=== PATIENT | female | born 1955 | race African-American/Black ===

== ENCOUNTER 2024-01-06 22:10 | Inpatient (IN) | payer MEDICARE, OTHER ==
[~2024-01-06] VITALS: Ht 160 cm; Wt 30.9 kg
[2024-01-06 22:10] VITALS: BP 146/53; PULSE 77; RESP 18; TEMP 37.00296; O2SAT 97
[~2024-01-06 22:10] MED LIST: ASPI-1497 PO; ATOR-2 PO; CLOP-31 PO; EZET10TA81 MT; ISOS60TA76 PO; LISI40TA13 MT; METF-414 PO; METF-416 PO; METO25TA6 PO; NITR0.4T49 SL
[2024-01-06 22:20] VITALS: BP 146/53; PULSE 77; RESP 20; TEMP 36.1956
[2024-01-07] MEDS ORDERED: ONDANSETRON HCL 4MG/2ML INJ IV PRN
[2024-01-07] MEDS ORDERED: GUAIFENESIN 200MG/10ML SUGAR FREE UDC PO PRN
[2024-01-07] MEDS ORDERED: MAGNESIUM HYDROXIDE 400MG/5ML 30ML UDC PO PRN
[2024-01-07] MEDS ORDERED: BISACODYL 5MG TABLET PO PRN
[2024-01-07] MEDS ORDERED: DOCUSATE SODIUM 250MG CAPSULE PO PRN
[2024-01-07] MEDS ORDERED: DEXTROSE 50% WATER 50ML SYRINGE IV PRN
[2024-01-07] MEDS ORDERED: HYDRALAZINE 20MG/ML VIAL IV PRN
[2024-01-07] MEDS ORDERED: HYDRALAZINE 10 MG in SODIUM CHLORIDE 0.9% 49.5 ML IV PRN (00:45)
[2024-01-07] MEDS: BLOOD SUGAR DIAGNOSTIC STRIP TEST SCH (06:50)
[2024-01-07] MEDS: HYDRALAZINE HCL 100MG TABLET PO SCH (06:50)
[2024-01-07 08:00] VITALS: BP 132/60; PULSE 83; RESP 18; TEMP 36.3918; O2SAT 100
[2024-01-07 08:33] LABS: CHLORIDE 108 mEq/L (98-107); POTASSIUM 3.1 mEq/L (3.5-5.1); SODIUM 141 mEq/L (136-145)
[2024-01-07 08:34] LABS: CALCIUM 8.2 mg/dL (8.7-10.4); CARBON DIOXIDE 28 mEq/L (21-32)
[2024-01-07 08:39] LABS: CREATININE 0.7 mg/dL (0.6-1.0); GLUCOSE 151 mg/dL (70-105); UREA NITROGEN BLOOD 15 mg/dL (9-23)
[2024-01-07 08:41] LABS: ALANINE AMINOTRANSFERASE 13 IU/L (10-49); ALBUMIN 3.1 g/dL (3.2-4.8); ASPARTATE AMINOTRANSFERASE 13 IU/L (<34); PREALBUMIN 22.6 mg/dl (10.0-40.0)
[2024-01-07 08:42] LABS: BILIRUBIN TOTAL 0.6 mg/dL (0.1-1.0); PROTEIN TOTAL 4.5 g/dL (6.0-8.3)
[2024-01-07] MEDS: LISINOPRIL 20MG TABLET PO SCH (08:54)
[2024-01-07] MEDS: SPIRONOLACTONE 25MG TABLET PO SCH (08:54)
[2024-01-07] MEDS: FUROSEMIDE 40MG TABLET PO SCH (08:54)
[2024-01-07] MEDS: AMLODIPINE 10MG TABLET PO SCH (08:54)
[2024-01-07] MEDS: LACTOBACILLUS GG CAPSULE PO SCH (08:54)
[2024-01-07] MEDS: METFORMIN HCL 500MG TABLET PO SCH (08:55)
[2024-01-07] MEDS: PANTOPRAZOLE 40MG DR TABLET PO SCH (08:55)
[2024-01-07] MEDS: BACITRACIN 14GM TUBE TOP SCH (08:55)
[2024-01-07] MEDS: ASPIRIN 81MG TABLET PO SCH (08:56)
[2024-01-07] MEDS: ENOXAPARIN 40MG/0.4ML SYR SUBCUT SCH (09:00)
[2024-01-07] MEDS: INSULIN LISPRO 100 UNITS/ML SUBCUT SCH (09:00)
[2024-01-07 09:52] LABS: BASOPHILS % 0.1 % (0.0-2.0); EOSINOPHILS % 0.3 % (0.0-5.0); HEMATOCRIT. 27.3 % (36.0-48.0); HEMOGLOBIN. 8.9 g/dL (12.0-16.0); LYMPHOCYTES % 18.8 % (20.0-50.0); MEAN CORPUSCULAR HEMOGLOBIN 27.9 pg (28.0-32.0); MEAN CORPUSCULAR HGB CONC 32.7 g/dL (31.0-37.0); MEAN CORPUSCULAR VOLUME 85.3 fL (81.0-99.0); MEAN PLATELET VOLUME 7.7 fl (7.4-10.4); MONOCYTES % 7.8 % (2.0-8.0); PLATELET 369 x1000/uL (130-400); RED CELL DISTRIBUTION WIDTH 15.5 % (11.6-14.6); WHITE BLOOD COUNT 19.4 x1000/uL (4.5-11.0)
[2024-01-07] MEDS: POTASSIUM CHLORIDE 20MEQ TABLET SR PO NR ×3 (10:35→17:58)
[2024-01-07] MEDS: CHLORHEXIDINE GLUCONATE 4% EXTERNAL USE TOP SCH ×2 (13:00→15:02)
[2024-01-07 17:11] LABS: POTASSIUM 3.4 mEq/L (3.5-5.1)
[2024-01-07 19:40] VITALS: BP 140/63; PULSE 92; RESP 20; TEMP 36.16956; O2SAT 100
[2024-01-07] MEDS: ATORVASTATIN CALCIUM 40MG TABLET PO SCH (21:10)
[2024-01-07 22:26] LABS: POTASSIUM 3.7 mEq/L (3.5-5.1)
[2024-01-08] MEDS: POTASSIUM CHLORIDE 20MEQ TABLET SR PO NR (06:58)
[2024-01-08 07:17] LABS: CHLORIDE 106 mEq/L (98-107); POTASSIUM 3.8 mEq/L (3.5-5.1); SODIUM 138 mEq/L (136-145)
[2024-01-08 07:18] LABS: CALCIUM 8.1 mg/dL (8.7-10.4); CARBON DIOXIDE 27 mEq/L (21-32); FOLIC ACID (FOLATE) SERUM 7.58 ng/mL (>5.38)
[2024-01-08 07:19] LABS: FERRITIN 242 ng/mL (10-291); VITAMIN B12 SERUM 575 pg/mL (211-911)
[2024-01-08 07:23] LABS: CREATININE 0.6 mg/dL (0.6-1.0); GLUCOSE 136 mg/dL (70-105); IRON 20 ug/dL (50-170); UREA NITROGEN BLOOD 10 mg/dL (9-23)
[2024-01-08 07:25] LABS: ALANINE AMINOTRANSFERASE 11 IU/L (10-49); ALBUMIN 3.1 g/dL (3.2-4.8); ASPARTATE AMINOTRANSFERASE 10 IU/L (<34)
[2024-01-08 07:26] LABS: BILIRUBIN TOTAL 0.6 mg/dL (0.1-1.0); PROTEIN TOTAL 4.6 g/dL (6.0-8.3); THYROID STIMULATING HORMONE 2.38 uIU/mL (0.55-4.78); TOTAL IRON BINDING CAPACITY 189 ug/dl (250-425)
[2024-01-08 08:00] VITALS: BP 136/51; PULSE 87; RESP 20; TEMP 36.16956; O2SAT 96
[2024-01-08 08:57] LABS: EOSINOPHILS % 0.9 % (0.0-5.0); HEMATOCRIT. 26.8 % (36.0-48.0); MEAN CORPUSCULAR HEMOGLOBIN 28.4 pg (28.0-32.0); MEAN CORPUSCULAR HGB CONC 33.5 g/dL (31.0-37.0); MEAN PLATELET VOLUME 7.9 fl (7.4-10.4); MONOCYTES % 6.6 % (2.0-8.0); NEUTROPHILS % 79.5 % (40.0-76.0); PLATELET 358 x1000/uL (130-400); RED BLOOD CELL COUNT 3.16 mill/uL (4.2-5.4); RED CELL DISTRIBUTION WIDTH 15.5 % (11.6-14.6); WHITE BLOOD COUNT 16.8 x1000/uL (4.5-11.0)
[2024-01-08 10:10] VITALS: BP 105/53; PULSE 93
[2024-01-08] MEDS: PREDNISONE 20MG TABLET PO SCH (13:41)
[2024-01-08] MEDS: FERROUS SULFATE 325MG TABLET PO SCH (18:45)
[2024-01-08 20:00] VITALS: BP 120/47; PULSE 92; RESP 18; TEMP 37.00296; O2SAT 99
[2024-01-09 08:00] VITALS: BP 132/58; PULSE 83; RESP 18; TEMP 36.89184; O2SAT 97
[2024-01-09] MEDS: ASCORBIC ACID 500 MG TABLET PO SCH (10:21)
[2024-01-09 13:36] LABS: POTASSIUM 3.5 mEq/L (3.5-5.1)
[2024-01-09] MEDS: THROAT LOZENGES-BENZOCAINE/MENTH/CETYLPYRD CL LOZENGES MM PRN (18:02)
[2024-01-09] MEDS: PHENOL/SODIUM PHENOLATE 1.4% SRPAY 177ML MM PRN (18:03)
[2024-01-09 20:00] VITALS: BP 128/48; PULSE 87; RESP 20; TEMP 37.503; O2SAT 98
[2024-01-09] MEDS: POTASSIUM CHLORIDE 20MEQ TABLET SR PO NR (21:20)
[2024-01-09] MEDS: CHLORHEXIDINE GLUCONATE 4% EXTERNAL USE TOP PRN (21:23)
[2024-01-10 07:20] LABS: CALCIUM 8.1 mg/dL (8.7-10.4); CARBON DIOXIDE 28 mEq/L (21-32); CHLORIDE 103 mEq/L (98-107); POTASSIUM 3.5 mEq/L (3.5-5.1); SODIUM 137 mEq/L (136-145)
[2024-01-10 07:26] LABS: CREATININE 0.7 mg/dL (0.6-1.0); GLUCOSE 99 mg/dL (70-105); UREA NITROGEN BLOOD 6 mg/dL (9-23)
[2024-01-10 07:28] LABS: BASOPHILS % 0.1 % (0.0-2.0); EOSINOPHILS % 1.7 % (0.0-5.0); HEMOGLOBIN. 7.8 g/dL (12.0-16.0); LYMPHOCYTES % 24.5 % (20.0-50.0); MEAN CORPUSCULAR HEMOGLOBIN 27.7 pg (28.0-32.0); MEAN CORPUSCULAR HGB CONC 32.3 g/dL (31.0-37.0); MEAN CORPUSCULAR VOLUME 85.7 fL (81.0-99.0); MEAN PLATELET VOLUME 7.9 fl (7.4-10.4); MONOCYTES % 9.7 % (2.0-8.0); PLATELET 389 x1000/uL (130-400); RED CELL DISTRIBUTION WIDTH 15.7 % (11.6-14.6); WHITE BLOOD COUNT 13.1 x1000/uL (4.5-11.0)
[2024-01-10 08:00] VITALS: BP 136/55; PULSE 77; RESP 20; TEMP 36.28068; O2SAT 96
[2024-01-10] MEDS: FOLIC ACID 1MG TABLET PO SCH (10:03)
[2024-01-10 16:19] LABS: CLARITY URINE CLEAR (CLEAR); COLOR URINE YELLOW (YELLOW); GLUCOSE URINE NEGATIVE (NEGATIVE); KETONES URINE NEGATIVE (NEGATIVE); LEUKOCYTE ESTERASE URINE NEGATIVE (NEGATIVE); NITRITE URINE NEGATIVE (NEGATIVE); OCCULT BLOOD URINE NEGATIVE (NEGATIVE); PROTEIN URINE NEGATIVE (NEGATIVE); SPECIFIC GRAVITY URINE 1.009 (1.005-1.030)
[2024-01-10] MEDS: ERGOCALCIFEROL 50000UNITS CAPSULE PO SCH (19:08)
[2024-01-10] MEDS ORDERED: POTASSIUM CHLORIDE 20MEQ TABLET SR PO NR (19:15)
[2024-01-10 20:00] VITALS: BP 123/63; PULSE 83; RESP 18; TEMP 37.2252; O2SAT 97
[2024-01-10 20:54] LABS: HEMATOCRIT 24.2 % (36.0-48.0); HEMOGLOBIN 7.9 g/dL (12.0-16.0); MEAN CORPUSCULAR HGB CONC 32.6 g/dL (31.0-37.0); PLATELET 372 x1000/uL (130-400); RED BLOOD CELL COUNT 2.81 mill/uL (4.2-5.4); RED CELL DISTRIBUTION WIDTH 15.8 % (11.6-14.6); WHITE BLOOD COUNT 11.4 x1000/uL (4.5-11.0)
[2024-01-10] MEDS: POTASSIUM CHLORIDE 20MEQ TABLET SR PO NR (21:07)
[2024-01-11 08:00] VITALS: BP 121/59; PULSE 77; RESP 18; TEMP 36.28068; O2SAT 98
[2024-01-11] MEDS: POTASSIUM CHLORIDE 20MEQ TABLET SR PO SCH (08:32)
[2024-01-11 17:28] LABS: BASOPHILS % 0.1 % (0.0-2.0); EOSINOPHILS % 0.1 % (0.0-5.0); HEMATOCRIT. 26.8 % (36.0-48.0); HEMOGLOBIN. 8.6 g/dL (12.0-16.0); LYMPHOCYTES % 8.7 % (20.0-50.0); MEAN CORPUSCULAR HEMOGLOBIN 27.7 pg (28.0-32.0); MEAN CORPUSCULAR VOLUME 86.4 fL (81.0-99.0); MEAN PLATELET VOLUME 7.5 fl (7.4-10.4); MONOCYTES % 3.5 % (2.0-8.0); NEUTROPHILS % 87.6 % (40.0-76.0); PLATELET 489 x1000/uL (130-400); RED CELL DISTRIBUTION WIDTH 16.2 % (11.6-14.6); WHITE BLOOD COUNT 11.5 x1000/uL (4.5-11.0)
[2024-01-11 17:34] LABS: CHLORIDE 102 mEq/L (98-107); POTASSIUM 4.4 mEq/L (3.5-5.1); SODIUM 138 mEq/L (136-145)
[2024-01-11 17:35] LABS: CALCIUM 8.9 mg/dL (8.7-10.4); CARBON DIOXIDE 26 mEq/L (21-32)
[2024-01-11 17:40] LABS: CREATININE 0.8 mg/dL (0.6-1.0); GLUCOSE 181 mg/dL (70-105); UREA NITROGEN BLOOD 7 mg/dL (9-23)
[2024-01-11 20:00] VITALS: BP 138/52; PULSE 82; RESP 18; TEMP 37.61412; O2SAT 100
[2024-01-12 08:00] VITALS: BP 138/59; PULSE 86; RESP 20; TEMP 36.89184; O2SAT 99
[2024-01-12 20:00] VITALS: BP 166/74; PULSE 83; RESP 20; TEMP 37.05852; O2SAT 99
[2024-01-13 08:00] VITALS: BP 144/60; PULSE 79; RESP 20; TEMP 36.16956; O2SAT 100
[2024-01-13] MEDS: PREDNISONE 10MG TABLET PO SCH (08:27)
[2024-01-13 20:00] VITALS: BP 113/46; PULSE 78; RESP 17; TEMP 36.33624; O2SAT 95
[2024-01-14 07:33] LABS: BASOPHILS % 0.9 % (0.0-2.0); EOSINOPHILS % 2.2 % (0.0-5.0); HEMATOCRIT. 27.4 % (36.0-48.0); HEMOGLOBIN. 8.9 g/dL (12.0-16.0); MEAN CORPUSCULAR HEMOGLOBIN 27.8 pg (28.0-32.0); MEAN CORPUSCULAR HGB CONC 32.5 g/dL (31.0-37.0); MEAN CORPUSCULAR VOLUME 85.4 fL (81.0-99.0); MEAN PLATELET VOLUME 6.8 fl (7.4-10.4); MONOCYTES % 5.8 % (2.0-8.0); NEUTROPHILS % 66.1 % (40.0-76.0); PLATELET 493 x1000/uL (130-400); RED BLOOD CELL COUNT 3.21 mill/uL (4.2-5.4); WHITE BLOOD COUNT 13.4 x1000/uL (4.5-11.0)
[2024-01-14 08:00] VITALS: BP 127/48; PULSE 83; RESP 19; TEMP 36.55848; O2SAT 100
[2024-01-14 08:00] LABS: CARBON DIOXIDE 28 mEq/L (21-32); CHLORIDE 102 mEq/L (98-107); POTASSIUM 3.7 mEq/L (3.5-5.1); SODIUM 137 mEq/L (136-145)
[2024-01-14 08:01] LABS: CALCIUM 9.1 mg/dL (8.7-10.4)
[2024-01-14 08:06] LABS: CREATININE 0.7 mg/dL (0.6-1.0); GLUCOSE 123 mg/dL (70-105); UREA NITROGEN BLOOD 7 mg/dL (9-23)
[2024-01-14 20:00] VITALS: BP 128/54; PULSE 89; RESP 18; TEMP 36.3918; O2SAT 100
[2024-01-14] MEDS: POTASSIUM CHLORIDE 20MEQ TABLET SR PO NR (21:48)
[2024-01-14 21:50] LABS: BASOPHILS % 0.7 % (0.0-2.0); EOSINOPHILS % 0.8 % (0.0-5.0); HEMATOCRIT. 28.2 % (36.0-48.0); HEMOGLOBIN. 9.1 g/dL (12.0-16.0); LYMPHOCYTES % 22.8 % (20.0-50.0); MEAN CORPUSCULAR HEMOGLOBIN 27.6 pg (28.0-32.0); MEAN CORPUSCULAR HGB CONC 32.3 g/dL (31.0-37.0); MEAN CORPUSCULAR VOLUME 85.6 fL (81.0-99.0); MEAN PLATELET VOLUME 6.7 fl (7.4-10.4); MONOCYTES % 5.2 % (2.0-8.0); NEUTROPHILS % 70.5 % (40.0-76.0); PLATELET 490 x1000/uL (130-400); WHITE BLOOD COUNT 13.1 x1000/uL (4.5-11.0)
[2024-01-15 07:17] LABS: POTASSIUM 3.8 mEq/L (3.5-5.1)
[2024-01-15 08:00] VITALS: BP 130/52; PULSE 88; RESP 20; TEMP 36.114; O2SAT 98
[2024-01-15] MEDS: PREDNISONE 5MG TABLET PO SCH (09:03)
[2024-01-15] MEDS: POTASSIUM CHLORIDE 10MEQ TABLET SR PO SCH (09:29)
[2024-01-15 20:00] VITALS: BP 126/48; PULSE 83; RESP 18; TEMP 36.72516; O2SAT 100
[2024-01-16 06:37] LABS: POTASSIUM 3.8 mEq/L (3.5-5.1)
[2024-01-16 09:30] VITALS: BP_SYST 112; BP_SYST 80; BP_SYST 96; BP_DIAS 46; BP_DIAS 48; PULSE 79; RESP 20; TEMP 36.78072; O2SAT 97
[2024-01-16 14:50] VITALS: BP_SYST 112; BP_SYST 74; BP_SYST 90; BP_DIAS 49; BP_DIAS 55
[2024-01-16] MEDS: ALBUMIN HUMAN 25GM/100ML (25%) IV NR (15:20)
[2024-01-16 19:37] VITALS: BP 125/60; PULSE 87; RESP 20; TEMP 36.50292; O2SAT 99
[2024-01-17 08:00] VITALS: BP 103/39; PULSE 90; RESP 18; TEMP 36.3918; O2SAT 98
[2024-01-17] MEDS ORDERED: LISINOPRIL 5MG TABLET PO SCH (11:30)
[2024-01-17] MEDS: ALBUMIN HUMAN 25GM/100ML (25%) IV NR (13:54)
[2024-01-17 17:37] LABS: BASOPHILS % 0.6 % (0.0-2.0); EOSINOPHILS % 1.9 % (0.0-5.0); HEMATOCRIT. 26.8 % (36.0-48.0); HEMOGLOBIN. 8.6 g/dL (12.0-16.0); LYMPHOCYTES % 19.5 % (20.0-50.0); MEAN CORPUSCULAR HEMOGLOBIN 28.2 pg (28.0-32.0); MEAN CORPUSCULAR HGB CONC 32.2 g/dL (31.0-37.0); MEAN CORPUSCULAR VOLUME 87.4 fL (81.0-99.0); MEAN PLATELET VOLUME 6.7 fl (7.4-10.4); MONOCYTES % 4.1 % (2.0-8.0); NEUTROPHILS % 73.9 % (40.0-76.0); PLATELET 379 x1000/uL (130-400); RED BLOOD CELL COUNT 3.07 mill/uL (4.2-5.4); RED CELL DISTRIBUTION WIDTH 16.1 % (11.6-14.6); WHITE BLOOD COUNT 9.5 x1000/uL (4.5-11.0)
[2024-01-17 17:42] LABS: CARBON DIOXIDE 25 mEq/L (21-32); CHLORIDE 106 mEq/L (98-107); POTASSIUM 4.2 mEq/L (3.5-5.1); SODIUM 139 mEq/L (136-145)
[2024-01-17 17:43] LABS: CALCIUM 9.4 mg/dL (8.7-10.4)
[2024-01-17 17:47] LABS: CREATININE 0.7 mg/dL (0.6-1.0)
[2024-01-17 17:48] LABS: GLUCOSE 120 mg/dL (70-105); UREA NITROGEN BLOOD 8 mg/dL (9-23)
[2024-01-17 18:00] VITALS: BP 109/64; PULSE 82; RESP 18; TEMP 36.28068; O2SAT 98
[2024-01-17 20:00] VITALS: BP 102/53; PULSE 98; RESP 17; TEMP 37.00296; O2SAT 98
[2024-01-18] VITALS: BP 122/58; PULSE 85; RESP 18; TEMP 36.89184; O2SAT 97
[2024-01-18 04:00] VITALS: BP 112/63; PULSE 91; RESP 18; TEMP 36.72516; O2SAT 99
[2024-01-18 07:55] VITALS: BP 128/57; PULSE 82; RESP 18; TEMP 36.44736; O2SAT 99
[2024-01-18] MEDS ORDERED: AMLODIPINE 2.5MG TABLET PO SCH (09:00)
[2024-01-18 11:17] VITALS: BP 135/66; PULSE 81
[2024-01-18 12:36] VITALS: BP 135/66; PULSE 81; TEMP 97.6; O2SAT 98
== END 2024-01-18 14:50 | disposition home health service (06) | DRG 280 ==
LOC: UNDOADMIN 22:34
PROVIDERS: ADMIT Physical Medicine & Rehabilitation Spinal Cord Injury Medicine; ATTEND Internal Medicine
DX: I21.4 Non-ST elevation (NSTEMI) myocardial infarction (principal); A41.9 Sepsis, unspecified organism; J18.9 Pneumonia, unspecified organism; J96.01 Acute respiratory failure with hypoxia; I50.33 Acute on chronic diastolic (congestive) heart failure; J93.9 Pneumothorax, unspecified; J44.0 Chronic obstructive pulmonary disease with (acute) lower respiratory infection; J44.1 Chronic obstructive pulmonary disease with (acute) exacerbation; I95.1 Orthostatic hypotension; I25.10 Atherosclerotic heart disease of native coronary artery without angina pectoris; E11.40 Type 2 diabetes mellitus with diabetic neuropathy, unspecified; I65.22 Occlusion and stenosis of left carotid artery; E78.00 Pure hypercholesterolemia, unspecified; I16.0 Hypertensive urgency; I11.0 Hypertensive heart disease with heart failure; D50.9 Iron deficiency anemia, unspecified; E55.9 Vitamin D deficiency, unspecified; E87.6 Hypokalemia; F17.210 Nicotine dependence, cigarettes, uncomplicated; F39 Unspecified mood [affective] disorder; J43.9 Emphysema, unspecified; R26.9 Unspecified abnormalities of gait and mobility; R53.81 Other malaise; K59.00 Constipation, unspecified; L60.0 Ingrowing nail; Z79.4 Long term (current) use of insulin; Z82.49 Family history of ischemic heart disease and other diseases of the circulatory system; I25.2 Old myocardial infarction; Z91.81 History of falling; Z95.1 Presence of aortocoronary bypass graft; Z95.5 Presence of coronary angioplasty implant and graft; Z79.82 Long term (current) use of aspirin; Z79.84 Long term (current) use of oral hypoglycemic drugs; Z79.899 Other long term (current) drug therapy
CPT/HCPCS: 36415; 71045; 80048; 80053; 81003; 82306; 82607; 82728; 82746; 82962; 83036; 83540; 83550; 83735; 84132; 84134; 84145; 84443; 85025; 85027; 97110; 97116; 97162; 97166; 97530; 97535; A6261; J1650; J1815; J7512; P9047